=== PATIENT | female | born 1955 | race Caucasian/White ===

== ENCOUNTER 2023-09-14 12:30 | Outpatient (RCR) | payer MEDICARE, BC, SELFPAY | END 2023-11-17 12:22 | disposition home or self-care (01) | PROVIDERS: PCP Family Medicine; Visit Provider Podiatrist Foot & Ankle Surgery | DX: M72.2 Plantar fascial fibromatosis (principal); M79.672 Pain in left foot; M79.671 Pain in right foot; M77.31 Calcaneal spur, right foot; M46.1 Sacroiliitis, not elsewhere classified; L90.8 Other atrophic disorders of skin; M25.572 Pain in left ankle and joints of left foot; M25.571 Pain in right ankle and joints of right foot; M62.81 Muscle weakness (generalized); R26.2 Difficulty in walking, not elsewhere classified; Z51.89 Encounter for other specified aftercare | CPT/HCPCS: 97110; 97112; 97140; 97162 ==

== ENCOUNTER 2023-09-16 09:37 | Emergency (ER) | payer MEDICARE, BC, SELFPAY ==
[2023-09-16 09:41] VITALS: BP 123/73; PULSE 100; RESP 18; TEMP 35.8; O2SAT 97; BMI 34.9
--- NOTE | 2023-09-16 10:12 | ED_ITS ---
HPI - General Adult General Time Seen by Provider: 10:12 Date Seen: 09/16/23 Chief complaint: Extremity Pain/Injury, Lower Stated complaint: Lower L leg pain Time Seen by Provider: 09/16/23 10:12 Source: patient and RN notes reviewed Mode of arrival: ambulatory Limitations: no limitations History of Present Illness HPI narrative: Patient is a 68-year-old female coming in with pain in her left calf. Pain starts below the knee goes all the way down to the ankle. She has had four spells in the last 8 days. She has some residual pain that she is feeling in the left ankle. There is no swelling, no redness, no fevers or chills, no shortness of breath, no chest pain, no trauma. She has been extensively evaluated at [place], does have osteoarthritis and has been in physical therapy for osteoarthritis of her left SI joint. She has absolutely no pain in the thigh or the left knee. Pain will start below the knee and the left side. She will almost feel like it is starting in going to cramp but she never gets the cramp or the muscle contraction. She does not have a history of DVT or blood clots prior. She has alopecia areata, has had it since her 30s. She is on hydrochlorothiazide and does take potassium, medications reviewed. She called the triage nurse at clinic, they did talk about the possibility of a blood clot in her leg, she had thought of this herself. The 1st spell lasted minutes, 2nd spell about 30 minutes, 3rd spell about 4 hours. This last 1 started about 13 hours ago, it is still residually there, more pain in the ankle. She will note pain with walking when she has the spells. Related Data Home Medications Medication Instructions Recorded Confirmed acetaminophen 500 mg capsule 1,000 mg PO BID 09/16/23 09/16/23 cetirizine 10 mg tablet 10 mg PO DAILY 09/16/23 09/16/23 fluticasone propionate 50 2 spray intranasal DAILY 09/16/23 09/16/23 mcg/actuation nasal spray,suspension hydrochlorothiazide 25 mg tablet 25 mg PO DAILY 09/16/23 09/16/23 lisinopril 10 mg tablet 10 mg PO DAILY 09/16/23 09/16/23 omeprazole 10 mg capsule,delayed 10 mg PO DAILY 09/16/23 09/16/23 release potassium chloride 10 mEq 10 meq PO DAILY 09/16/23 09/16/23 tablet,extended release pseudoephedrine HCl 30 mg tablet 30 mg PO Q6H PRN congestion 09/16/23 09/16/23 rosuvastatin 5 mg tablet 5 mg PO DAILY 09/16/23 09/16/23 Allergies Allergy/AdvReac Type Severity Reaction Status Date / Time adhesive Allergy Rash Verified 09/16/23 09:46 atorvastatin [From Lipitor] Allergy Rash Verified 09/16/23 09:46 gatifloxacin [From Tequin] Allergy Rash Verified 09/16/23 09:46 Review of Systems Status of ROS: Reports: 6 or more systems reviewed and unremarkable except as noted in History and below [facility] Medical History (Updated 09/16/23 @ 12:06 by Neela Morrell MD) Hypertension ?I10 - Essential (primary) hypertension (ICD-10) Hyperlipidemia ?E78.5 - Hyperlipidemia, unspecified (ICD-10) Alopecia areata ?L63.9 - Alopecia areata, unspecified (ICD-10) Social History Smoking Status: Never smoker How often do you have a drink containing alcohol: never AUDIT-C Alcohol total score: 0 Non-prescribed substance use: denies use Exam Const: Vital Signs, click to edit/add: Vital Signs - 24 hr 09/16/23 09:41 Temperature 96.5 F L Pulse Rate [Left P ulse Oximeter] 100 Respiratory Rate 18 Blood Pressure [Ri ght Upper Arm] 123/73 Pulse Oximetry 97 Oxygen Delivery Me thod Room Air This 68-year-old female is ambulatory into the ED of her own accord. She is lying in the bed in exam room 5, alert, interactive, no apparent distress, no tachypnea, able to speak in complete sentences. Sclera clear, conjugate gaze. Symmetrical facial function. Neck is supple, no jugular venous distension. Able to sit up, lungs are clear, good air entry, no wheezing or crackles. CV regular rate and rhythm, no murmur, normal S1-S2, no S3-S4. Her lower extremities are symmetric, good dorsalis pedis pulses in symmetric. There is no edema of her lower extremities, no overlying skin changes of either leg. Left knee has no effusion, good range of motion. She does have positive Homans on the left side. Normal sensation, no sense of numbness or tingling of her lower extremities. Documenting provider has reviewed patient's vital signs: yes Course Course ED Course: Patient will be observed on pulse oximetry, full complement of labs obtain. We will proceed with ultrasound of her left lower extremity to rule out DVT. Will also consider electrolyte abnormalities, have reviewed with her other etiologies are musculoskeletal such as a atypical presentation of a sciatica. Reevaluation(s) Time of Reevaluation #1: 11:53 Reevaluation #1: Have reviewed the negative ultrasound for DVT with patient. Only abnormality in her labs is that her potassium is mildly low. Normal is 3.6 and hers is at 3.3. We have discussed doing the oral effervescent potassium. She had questions about peripheral neuropathy, certainly that is a potential possibility but she would need to have 2 weeks the symptoms before and would even consider an EMG otherwise there may be a false negative. She would need to follow-up with neurology if that is the thought. I still think that back problems are potential here, can be followed up and worked up further in clinic, does not need to happen emergently today. We have ruled out DVT today. I think she is safe to return back to outpatient management in clinic follow-up for further workup and evaluation. We will correct with some oral effervescent potassium, she can see if that helps her symptoms. I do recommend that she follow up in 1- 2 weeks for recheck of her potassium, they may need to consider increasing her supplementation. Patient does report some underlying chronic kidney disease. She does avoid NSAIDs. We verbally did talk about trying some Tylenol per bottle directions. Vital Signs Vital signs: Initial Vital Signs Temperature 96.5 F L 09/16/23 09:41 Temperature Source Temporal Artery Scan 09/16/23 09:41 Pulse Rate 100 09/16/23 09:41 Respiratory Rate 18 09/16/23 09:41 Blood Pressure 123/73 09/16/23 09:41 Blood Pressure Mean 89 09/16/23 09:41 Blood Pressure Position Sitting 09/16/23 09:41 Pulse Oximetry 97 09/16/23 09:41 Oxygen Delivery Method Room Air 09/16/23 09:41 Vital Signs Temperature 96.5 F L 09/16/23 09:41 Pulse Rate 100 09/16/23 09:41 Respiratory Rate 18 09/16/23 09:41 Blood Pressure 123/73 09/16/23 09:41 Pulse Oximetry 97 09/16/23 09:41 Oxygen Delivery Method Room Air 09/16/23 09:41 Temperature 96.5 F L 09/16/23 09:41 Pulse Rate 100 09/16/23 09:41 Respiratory Rate 18 09/16/23 09:41 Blood Pressure 123/73 09/16/23 09:41 Pulse Oximetry 97 09/16/23 09:41 Oxygen Delivery Method Room Air 09/16/23 09:41 Medical Decision Making Lab Data Lab results reviewed: Yes I reviewed the patient's lab results Labs: Lab Results 09/16/23 Range/Units 10:30 WBC 6.13 (4.50-11.00) K/uL RBC 4.46 (4.00-5.20) m/uL Hgb 14.4 (12.0-16.0) gm/dL Hct 41.6 (33.0-51.0) % MCV 93 (80-100) fL MCH 32 (26-34) pg MCHC 35 (32-36) gm/dL RDW Coeff of Stefani 11.8 (11.5-15.5) % Plt Count 264 (140-440) K/uL Neut % (Auto) 57.8 (42.0-72.0) % Lymph % (Auto) 26.6 (20-44) % Calvert % (Auto) 11.1 H (0.0-11.0) % Eos % (Auto) 3.8 (0.0-7.0) % Baso % (Auto) 0.5 (0.0-3.0) % Neut # (Auto) 3.55 (1.7-7.0) K/uL Lymph # (Auto) 1.63 (0.90-2.90) K/uL Calvert # (Auto) 0.70 (0.00-0.90) K/UL Eos # (Auto) 0.23 (0.00-0.50) K/uL Baso # (Auto) 0.03 (0.00-0.30) K/uL Abs Immat Gran (auto) 0.01 (0.00-0.30) K/uL Imm/Tot Granulo (auto) 0.2 % D-Dimer Quant (PE/DVT) 0.89 H (0.00-0.50) ug/ml Sodium 137 (135-149) mmol/L Potassium 3.3 L (3.6-5.1) mmol/L Chloride 104 (96-114) mmol/L Carbon Dioxide 22 (20-32) mmol/L Anion Gap 11 (7-15) mEq/L BUN 21 (7-30) mg/dL Creatinine 1.1 (0.5-1.5) mg/dL Estimated Creat Clear 43.43 Estimated GFR 54 ml/min Glucose 141 H (60-115) mg/dL Calcium 9.6 (8.4-10.6) mg/dL Magnesium 1.9 (1.5-2.6) mg/dL Total Bilirubin 0.5 (0.1-1.5) mg/dL AST 30 (12-35) U/L ALT 27 (4-35) U/L Alkaline Phosphatase 75 (40-150) U/L C-Reactive Protein 0.6 (0.5-1.0) mg/dL Total Protein 7.1 (6.0-8.3) g/dL Albumin 4.3 (3.3-5.0) g/dL Imaging Data Venous US: Attestation: I have reviewed the pertinent imaging results. Radiologist's impression: Patient: SHA WALLACE Facility:?[facility] Patient ID:?[id number] Site Patient ID:?[id number]. Site :?[id number] Study:?US Extremity Left LEV-09/16/2023 10:57:21 AM Ordering Physician:Rosibel Keita Final Report: INDICATION: LEFT CALF PAIN COMPARISON: None. TECHNIQUE: A compression venous ultrasound exam was performed of the left lower extremity using hartmann-scale imaging, color Doppler and spectral Doppler analysis. FINDINGS: Sonographic imaging of the left lower extremity demonstrates normal compressibility and color Doppler venous blood flow within the common femoral vein, deep femoral vein, and the proximal greater saphenous vein. Within the thigh, the femoral vein is patent and compressible. At a lower level, the popliteal and posterior tibial veins also show normal compressibility and color Doppler venous blood flow. Limited imaging of the contralateral groin demonstrates a normal spectral waveform and color Doppler venous blood flow within the right common femoral vein. IMPRESSION: Normal venous ultrasound exam. No evidence of deep vein thrombosis within the left lower extremity. Dictated by Aj Wright MD @ 09/16/2023 11:21:13 AM (Electronic Signature) Discharge Plan Discharge Clinical Impression: Pain of left calf, Hypokalemia Patient Disposition: Home, Self-Care Condition: Stable Instructions: Potassium Content of Foods List (ED), Hypokalemia (ED), Lumbar Radiculopathy (ED) Additional Instructions: Need to follow up in clinic within the next 1-2 weeks, sooner if ongoing or worsening symptoms. Potassium needs to be rechecked at that clinic visit to ensure that you do not need to increase her supplementation. See if the addition of extra oral potassium today does help your symptoms. It is possible that this could be coming from her back, information for educational purposes is given on lumbar radiculopathy. You did bring up peripheral neuropathy, this would be an atypical presentation but could be a consideration. Follow up in clinic within the next 1-2 weeks or before if needed, they can help direct further workup with ongoing symptoms. Activity Level: Activity as Tolerated Prescriptions: No Action cetirizine 10 mg tablet 10 mg PO DAILY potassium chloride 10 mEq tablet extended release 10 meq PO DAILY omeprazole 10 mg capsule,delayed release(DR/EC) 10 mg PO DAILY lisinopril 10 mg tablet 10 mg PO DAILY pseudoephedrine HCl 30 mg tablet 30 mg PO Q6H PRN (Reason: congestion) hydrochlorothiazide 25 mg tablet 25 mg PO DAILY fluticasone propionate 50 mcg/actuation spray,suspension 2 spray INTRANASAL DAILY rosuvastatin 5 mg tablet 5 mg PO DAILY acetaminophen 500 mg capsule 1,000 mg PO BID Follow Up/Referrals: Tash Mosley MD [Referring] - Stand Alone Forms: OpenLabel Info Instructions
--- NOTE | 2023-09-16 10:21 | CRLHL7_ITS ---
For Patients: As a result of the Century Cures Act, medical imaging exams and procedure reports are released immediately into your electronic medical record. You may view this report before your referring provider. If you have questions, please contact your health care provider. INDICATION: LEFT CALF PAIN COMPARISON: None. TECHNIQUE: A compression venous ultrasound exam was performed of the left lower extremity using hartmann-scale imaging, color Doppler and spectral Doppler analysis. FINDINGS: Sonographic imaging of the left lower extremity demonstrates normal compressibility and color Doppler venous blood flow within the common femoral vein, deep femoral vein, and the proximal greater saphenous vein. Within the thigh, the femoral vein is patent and compressible. At a lower level, the popliteal and posterior tibial veins also show normal compressibility and color Doppler venous blood flow. Limited imaging of the contralateral groin demonstrates a normal spectral waveform and color Doppler venous blood flow within the right common femoral vein. IMPRESSION: Normal venous ultrasound exam. No evidence of deep vein thrombosis within the left lower extremity. Dictated by Aj Wright MD @ 09/16/2023 11:21:13 AM (Electronically Signed)
[2023-09-16 10:43] LABS: Basophils Absolute Auto 0.03 K/uL (0.00-0.30); Basophils Percent Auto 0.5 % (0.0-3.0); Eosinophils Absolute Auto 0.23 K/uL (0.00-0.50); Eosinophils Percent Auto 3.8 % (0.0-7.0); Hematocrit 41.6 % (33.0-51.0); Hemoglobin* 14.4 gm/dL (12.0-16.0); Immature Granulocytes Abs Auto 0.01 K/uL (0.00-0.30); Immature Granulocytes Pct Auto 0.2 %; Lymphocytes Absolute Auto 1.63 K/uL (0.90-2.90); Lymphocytes Percent Auto 26.6 % (20-44); Mean Corpuscular HGB Conc 35 gm/dL (32-36); Mean Corpuscular Hemoglobin 32 pg (26-34); Mean Corpuscular Volume 93 fL (80-100); Monocytes Percent Auto 11.1 % (0.0-11.0); Neutrophils Absolute Auto 3.55 K/uL (1.7-7.0); Neutrophils Percent Auto 57.8 % (42.0-72.0); Platelet Count* 264 K/uL (140-440); RDW Coefficient of Variation % 11.8 % (11.5-15.5); Red Blood Count 4.46 m/uL (4.00-5.20); White Blood Count* 6.13 K/uL (4.50-11.00)
[2023-09-16 10:45] LABS: Slide Review Reflex No
[2023-09-16 10:54] LABS: Chloride* 104 mmol/L (96-114)
[2023-09-16 10:55] LABS: Albumin* 4.3 g/dL (3.3-5.0); Potassium* 3.3 mmol/L (3.6-5.1); Sodium* 137 mmol/L (135-149)
[2023-09-16 10:57] LABS: Creatinine* 1.1 mg/dL (0.5-1.5); Est. Creatinine Clearance* 43.43; Estimated Glomerular Filt Rate 54 ml/min
[2023-09-16 10:58] LABS: Alanine Aminotransferase* 27 U/L (4-35); Alkaline Phosphatase* 75 U/L (40-150); Anion Gap 11 mEq/L (7-15); Aspartate Amino Transferase* 30 U/L (12-35); Bilirubin Total* 0.5 mg/dL (0.1-1.5); Blood Urea Nitrogen* 21 mg/dL (7-30); Calcium* 9.6 mg/dL (8.4-10.6); Carbon Dioxide* 22 mmol/L (20-32); Glucose* 141 mg/dL (60-115); Total Protein* 7.1 g/dL (6.0-8.3)
[2023-09-16 10:59] LABS: Magnesium* 1.9 mg/dL (1.5-2.6)
[2023-09-16 11:01] LABS: C Reactive Protein* 0.6 mg/dL (0.5-1.0)
[2023-09-16 11:14] LABS: D Dimer Quantitative* 0.89 ug/ml (0.00-0.50)
[2023-09-16] MEDS: POTASSIUM BICARB 25 MEQ EFFERVESCENT TAB PO (12:17)
== END 2023-09-16 12:23 | disposition home or self-care (01) ==
PROVIDERS: Emergency Provider Family Medicine; PCP Family Medicine
DX: E87.6 Hypokalemia (principal); M79.662 Pain in left lower leg
CPT/HCPCS: 36415; 80053; 83735; 85025; 85379; 86140; 93971; 95992; 99284; A9270